=== PATIENT | male | born 1980 | race Caucasian/White ===

== ENCOUNTER 2017-11-22 09:49 | Emergency (ER) | payer MEDICAID ==
[~2017-11-22] VITALS: Ht 180.3 cm; Wt 151.0 kg
[2017-11-22 10:37] VITALS: BP 139/85
== END 2017-11-22 10:39 | disposition home or self-care (01) ==
LOC: ED 10:17
DX: H66.91 Otitis media, unspecified, right ear (principal); J00 Acute nasopharyngitis [common cold]
CPT/HCPCS: 99283